=== PATIENT | female | born 1980 | race Caucasian/White ===

== ENCOUNTER 2018-02-24 03:57 | Emergency (ER) | END 2018-02-24 06:17 | disposition home or self-care (01) ==

== ENCOUNTER 2019-05-12 15:57 | Emergency (ER) | payer MEDICAID, OTHER ==
[~2019-05-12] VITALS: Ht 160 cm; Wt 78.0 kg
[~2019-05-12 15:57] MED LIST: FAMO-96 PO; HYDR-3980 PO; NAPR-985 PO; ONDA4TAB8 PO
[2019-05-12 16:02] VITALS: Ht 160 cm; Wt 78.0 kg
[2019-05-12] MEDS ORDERED: morphine 4 MG/ML VIAL IV STA (16:18)
[2019-05-12] MEDS ORDERED: SOD CHLORIDE 0.9% 1,000 ML IV STA ×2 (16:18→17:40)
[2019-05-12] MEDS ORDERED: ONDANSETRON 4 MG INJ IV STA (16:18)
[2019-05-12] MEDS ORDERED: KETOROLAC 30 MG INJ IV STA (16:18)
--- NOTE | 2019-05-12 16:33 | ERD ---
ER Documentation Chief Complaint Chief Complaint left back pain rad abd, vomiting HPI This is a 39-year-old female that presents to the emergency department complaining of a sudden onset of left flank pain that began roughly 2 hours prior to arrival. Patient indicates that the pain was a sharp shooting pain. It was intermittent. It was 10 out of 10 in intensity. The pain has began to radiate to the left lower quadrant. She denies any frequency urgency or hematuria. The patient has had 4 episodes of nonbloody nonbilious emesis. The patient had no fevers or shaking or chills. She is a past medical history of glaucoma and nephrolithiasis. She indicates one year ago she had similar symptoms and passed a kidney stone. She took half a [place] prior to arrival but this did not improve her symptoms. She has no chest pain. She has no shortness of breath. She denies any recent travel. There is no alleviating or exacer bating factors to the pain. ROS All systems reviewed and are negative except as per history of present illness. Medications Home Meds Active Scripts Ondansetron (Ondansetron Odt) 4 Mg Tab.rapdis, 4 MG PO Q6H PRN for NAUSEA AND/OR VOMITING, #10 TAB Prov:ERICKSON JESSICA MD 05/12/19 Cephalexin* (Keflex*) 500 Mg Capsule, 500 MG PO QID for 10 Days, CAP Prov:ERICKSON JESSICA MD 05/12/19 Hydrocodone/Acetaminophen ([place] 5-325 Tablet) 1 Each Tablet, 1 EACH PO Q6, #20 TAB Prov:ERICKSON JESSICA MD 05/12/19 Ibuprofen* (Motrin*) 800 Mg Tab, 800 MG PO Q6H PRN for PAIN AND OR ELEVATED TEMP, #30 TAB Prov:ERICKSON JESSICA MD 05/12/19 Famotidine* (Pepcid*) 20 Mg Tablet, 20 MG PO DAILY for 30 Days, #30 TAB Prov:GALE IBARRA F 02/24/18 Ondansetron Hcl* (Zofran*) 4 Mg Tablet, 4 MG PO Q8H PRN for NAUSEA AND/OR VOMITING, #30 TAB Prov:PASILAERNESTO HAJIAR F 02/24/18 Hydrocodone/Acetaminophen ([place] 10-325 Tablet) 1 Each Tablet, 1 TAB PO Q6H PRN for PAIN, #20 TAB Prov:GALE IBARRA 02/24/18 Naproxen* (Naprosyn*) 500 Mg Tablet, 500 MG PO BID PRN for MILD PAIN LEVEL 1-3, #30 TAB Prov:GALE IBARRA 02/24/18 Allergies Allergies: Coded Allergies: No Known Drug Allergies (Verified Allergy, Unknown, 02/24/18) PMhx/Soc Hx Miscellaneous Medical Probl: Yes (glaucoma) Hx Alcohol Use: No Hx Substance Use: No Hx Tobacco Use: Yes Smoking Status: Current some day smoker Physical Exam Vitals Vital Signs Date Temp Pulse Resp B/P (MAP) Pulse Ox O2 O2 Flow FiO2 Time Delivery Rate 05/12/19 98.1 84 18 146/76 99 16:02 (99) Physical Exam Constitutional:Well-developed. Well-nourished. Patient appears to be in a significant amount of discomfort secondary to pain HEENT:Normocephalic. Atraumatic.Pupils were equal round reactive to light. Dry mucous membranes.No tonsillar exudates. Respiratory: Not using accessory muscles of respiration.Lungs were clear to auscultation bilaterally. No rhonchi. No rales. No wheezing. Cardiovascular: Regular rate regular rhythm.No murmurs. No rubs were appreciated.S1, S2 normal. Distal pulses are palpable 2+ bilaterally. GI: Abdomen was soft. Left CVA tenderness. Non Distended. No pulsatile abdominal masses or bruits. No rebound. No guarding. Bowel sounds were present and normal. Muscle skeletal: Full range of motion of both the upper and lower extremities bilaterally.Normal muscle tone.No assymetrical calf tenderness or swelling. Skin: No petechia, no purpura. No lesions on the palms or the soles of the feet. No maculopapular rash. NEURO: Patient was alert, awake, orientated x3.no focal neurological deficits Result Diagram: 05/12/19 1625 05/12/19 1625 Results 24 hrs Laboratory Tests Test 05/12/19 16:25 05/12/19 16:33 White Blood Count 11.5 10^3/ul Red Blood Count 4.28 10^6/ul Hemoglobin 12.2 g/dl Hematocrit 36.9 % Mean Corpuscular Volume 86.2 fl Mean Corpuscular Hemoglobin 28.5 pg Mean Corpuscular Hemoglobin Concent 33.1 g/dl Red Cell Distribution Width 12.6 % Platelet Count 302 10^3/UL Mean Platelet Volume 10.4 fl Immature Granulocytes % 0.400 % Neutrophils % 87.9 % Lymphocytes % 7.8 % Monocytes % 3.5 % Eosinophils % 0.1 % Basophils % 0.3 % Nucleated Red Blood Cells % 0.0 /100WBC Immature Granulocytes # 0.050 10^3/ul Neutrophils # 10.1 10^3/ul Lymphocytes # 0.9 10^3/ul Monocytes # 0.4 10^3/ul Eosinophils # 0.0 10^3/ul Basophils # 0.0 10^3/ul Nucleated Red Blood Cells # 0.0 10^3/ul Prothrombin Time 13.1 Sec Prothrombin Time Ratio 1.0 INR International Normalized Ratio 0.98 Activated Partial Thromboplast Time 29.2 Sec Urine Color YELLOW Urine Clarity SLIGHTLY CLOUDY Urine pH 8.0 Urine Specific [place] 1.023 Urine Ketones TRACE mg/dL Urine Nitrite NEGATIVE mg/dL Urine Bilirubin NEGATIVE mg/dL Urine Urobilinogen NEGATIVE mg/dL Urine Leukocyte Esterase TRACE Marisol/ul Urine Microscopic RBC > 182 /HPF Urine Microscopic WBC 15 /HPF Urine Squamous Epithelial Cells MODERATE /HPF Urine Bacteria FEW /HPF Urine Mucus FEW /HPF Urine Hemoglobin 3+ mg/dL Urine Glucose NEGATIVE mg/dL Urine Total Protein 1+ mg/dl Sodium Level 141 mmol/L Potassium Level 4.4 mmol/L Chloride Level 106 mmol/L Carbon Dioxide Level 26 mmol/L Anion Gap 9 Blood Urea Nitrogen 16 mg/dl Creatinine 1.03 mg/dl Est Glomerular Filtrat Rate mL/min 59 mL/min Glucose Level 125 mg/dl Calcium Level 9.8 mg/dl Total Bilirubin 0.8 mg/dl Direct Bilirubin 0.00 mg/dl Indirect Bilirubin 0.8 mg/dl Aspartate Amino Transf (AST/SGOT) 26 IU/L Alanine Aminotransferase (ALT/SGPT) 22 IU/L Alkaline Phosphatase 67 IU/L Total Protein 8.2 g/dl Albumin 4.6 g/dl Globulin 3.60 g/dl Albumin/Globulin Ratio 1.27 POC Beta HCG, Qualitative NEGATIVE Current Medications Medications Dose Sig/Aly Start Time Status Last (Trade) Ordered Route PRN Stop Time Admin Dose Reason Admin Sodium 1,000 ml @ Q1H STAT 05/12/19 DC 05/12/19 Chloride 1,000 mls/hr IV 16:18 05/12/19 16:29 17:17 Morphine 4 mg ONCE STAT 05/12/19 DC 05/12/19 Sulfate IV 16:18 05/12/19 16:29 (morphine) 16:20 Ondansetron 4 mg ONCE STAT 05/12/19 DC 05/12/19 HCl (Zofran IV 16:18 05/12/19 16:28 Inj) 16:20 Ketorolac 30 mg ONCE STAT 05/12/19 DC 05/12/19 Tromethamine IV 16:18 05/12/19 16:42 (Toradol) 16:20 Sodium 1,000 ml @ Q1H STAT 05/12/19 DC 05/12/19 Chloride 1,000 mls/hr IV 17:40 05/12/19 17:44 18:39 Ceftriaxone 50 ml @ ONCE ONCE 05/12/19 DC 05/12/19 Sodium 100 mls/hr IVPB 18:00 05/12/19 17:44 18:29 Procedures/MDM The patient presented to the emergency department with flank pain. My differential diagnosis included but was not limited to spinal origins of the pain such as fracture, osteomyelitis, epidural abscess, neoplasm, spondylolishtesis, discogenic, cauda equina syndrome or musculoligamentous. Nonspinal causes such as AAA, upper UTI, renal colic, aortic dissection, abdominal neoplasm were also considered as an etiology into their pain. The patient's physical exam findings did appear to be a result of nephrolithiasis. I do feel is necessary to obtain a CT scan of the abdomen as the patient continued to be in a significant amount discomfort despite receiving analgesic medication. The CT scan indicated the followin mm obstructing distal left ureteral stone at the UVJ results and mild to moderate left-sided hydronephrosis and perinephric fat stranding. No evidence of bowel obstruction or inflammation. There is no appendicitis. Trace aortic vascular calcification is present. Observation Note: Time: 4 hours Family Hx: No Hypertension Evaluation: Multiple exams showed improving symptoms and no evidence of returning of her pain. She did receive a dose of IV ceftriaxone in the emergency department as she indicated she recently had a urinary tract infection placed on Cipro. There is pyuria with microscopic hematuria. I given the findings on the CT scan of moderate left-sided hydronephrosis and perinephric fat stranding I did feel it was imperative the patient received antibiotics. She will be sent home with Keflex. Again she was pain-free at the time of discharge. She was also sent home with anti-inflammatories and [place] for br eakthrough pain. The patient was discharged home in fair condition. They were instructed to return to the emergency department at any time if there was any worsening of their condition. The patient stated they would follow up with their PCP in the next 24-48 hours to initiate a suitable medication regimen under the care of their PCP as well as to allow their PCP to monitor any drug reactions. The patient was discharged home with prescriptions after they gave informed consent to the new medication. They were also fully informed by myself on the adverse effects and adverse drug interactions in order to provide adequate safeguards to prevent possible adverse reactions to medications. Departure Diagnosis: Primary Impression: Nephrolithiasis Condition: ERICKSON Ratliff MD May 12, 2019 16:33
[2019-05-12] MEDS ORDERED: CEFTRIAXONE 1 GM/50 ML (PMX) 50 ML IVPB ONE (18:00)
[2019-05-12] MEDS ORDERED: IBUP800T48 PO (18:47)
[2019-05-12] MEDS ORDERED: HYDR-4011 PO (18:47)
[2019-05-12] MEDS ORDERED: ONDA4TAB14 PO (18:47)
[2019-05-12] MEDS ORDERED: CEPH-443 PO (18:47)
[2019-05-12] MEDS ORDERED: FLUC150T PO (19:21)
[2019-05-12 19:30] VITALS: BP 142/76; PULSE 77; RESP 20
== END 2019-05-12 19:31 | disposition home or self-care (01) ==
LOC: FTE 15:57
DX: N20.0 Calculus of kidney (principal); F17.210 Nicotine dependence, cigarettes, uncomplicated
CPT/HCPCS: 74176; 80053; 81001; 81025; 85025; 85610; 85730; 87086; 96361; 96365; 96375; J0696; J1885; J2270; J2405; J7030; Z7502